=== PATIENT | female | born 1980 | race Caucasian/White ===

== ENCOUNTER 2020-05-22 14:42 | Emergency (ER) | payer MEDICAID, OTHER ==
[2020-05-22 15:09] VITALS: BP 151/79
--- NOTE | 2020-05-22 15:51 | ER Document Report ---
ED General - General Chief Complaint: Headache Stated Complaint: HEADACHE,COUGH,SORE THROAT Time Seen by Provider: 05/22/20 15:10 - HPI Notes: Patient is a 40-year-old female with a history of allergies, sinusitis, who presents to the emergency department for evaluation of 1 week of nasal congestion, head pressure, headache, and cough. She states she has had a nonproductive cough, although she feels like "she just cannot get it up." She said no fevers or chills. No nausea or vomiting. No anosmia, her face does not hurt. She is tasting her food without difficulty. No nausea or vomiting. Normal bowel movements. No dysuria. - Related Data Home Medications: [id number] medications including DayQuil, NyQuil Past Medical History - General Information source: Patient - Social History Smoking Status: Current Every Day Smoker Drug Abuse: None Family History: Reviewed & Not Pertinent, Other - "Mental health" issues Past Surgical History: Reports: Hx Section, Hx Dilation and Curettage Review of Systems - Review of Systems Constitutional: No symptoms reported EENT: See HPI Cardiovascular: No symptoms reported Respiratory: See HPI Gastrointestinal: No symptoms reported Genitourinary: No symptoms reported Female Genitourinary: No symptoms reported Musculoskeletal: No symptoms reported Skin: No symptoms reported Neurological/Psychological: No symptoms reported Physical Exam - Vital signs Vitals: Temp Pulse Resp BP Pulse Ox 98.4 F 87 20 152/110 H 97 05/22/20 15:08 05/22/20 15:08 05/22/20 15:08 05/22/20 15:08 05/22/20 15:08 - Notes Notes: Vital signs reviewed, please refer to chart. Head is normocephalic, atraumatic. Pupils equal round, reactive to light. TMs are pearly davila with good light reflex. Oral mucosa is moist. Pharynx is mildly erythematous without exudate. No tenderness overlying the ethmoid, maxillary, frontal sinuses. Neck is supple without meningismus. Heart is regular rate and rhythm. Lungs are clear to auscultation bilaterally. Abdomen is soft, nontender, normoactive bowel sounds throughout. Extremities without cyanosis, clubbing. Posterior calves are nontender. Peripheral pulses are equal. Skin is warm and dry. Patient is awake, alert, neurological exam is nonfocal. Course - Re-evaluation Re-evalutation: 05/22/20 15:49 Patient presents the emergency department for evaluation of upper respiratory symptoms. She has sinus congestion, but no real sinus tenderness, no elder fevers, and her symptoms of only been present for 7 days. I do not think this warrants an antibiotic. Her lungs are clear, she is oxygenating 95% on room air, excellent for a smoker with a URI at this time. I am not inclined to perform a chest x-ray. Although her symptoms would be atypical, I did order a COVID screen. I offered her nasal steroids, but she states that she cannot tolerate nasal sprays, was hopeful for some oral steroids. I will give her a 3-day burst of prednisone to see if I can help her with her symptoms. Otherwise I will send her with Phenergan with codeine to help her with her cough at night. She is warned that this will cause drowsiness and dizziness, she voiced understanding. Otherwise she is to follow-up with primary care next week, return to the ED with worsening. - Vital Signs Vital signs: Temp Pulse Resp BP Pulse Ox 98.4 F 87 20 151/79 H 97 05/22/20 15:08 05/22/20 15:08 05/22/20 15:08 05/22/20 15:08 05/22/20 15:08 Discharge - Discharge Clinical Impression: Person under investigation for COVID-19 Upper respiratory infection Qualifiers: URI type: unspecified viral URI Qualified Code(s): J06.9 - Acute upper respiratory infection, unspecified Condition: Stable Disposition: HOME, SELF-CARE Instructions: COVID-19 Guidance for Persons Under Investigation, Upper Respiratory Illness ([facility]), Viral Syndrome ([facility])
== END 2020-05-22 16:20 | disposition home or self-care (01) ==
LOC: ER 14:42
DX: J06.9 Acute upper respiratory infection, unspecified (principal); J02.9 Acute pharyngitis, unspecified; R51.9 Headache, unspecified; F17.200 Nicotine dependence, unspecified, uncomplicated; Z20.828 Contact with and (suspected) exposure to other viral communicable diseases
CPT/HCPCS: 99283; 87635; C9803